=== PATIENT | female | born 1990 ===

== ENCOUNTER → 2018-03-07 | Outpatient (CLI) | payer SELFPAY ==
[~2018-03-07] MED LIST: ANTI NAUSEA MED; NEOPOLHCSU OT; ONDA4 PO
[2018-03-08 15:09] LABS: HPV 16 Negative (Negative); HPV 18 Negative (Negative); HPV OTHER HR TYPES Negative (Negative)
== END ==
LOC: LAB 11:24 → LAB SHORT 11:24
PROVIDERS: Registered Nurse Community Health
DX: Z12.4 Encounter for screening for malignant neoplasm of cervix (principal); Z87.42 Personal history of other diseases of the female genital tract
CPT/HCPCS: 87624; G0123

== ENCOUNTER 2018-07-14 04:53 | Emergency (ER) | payer OTHER ==
[~2018-07-14] VITALS: Ht 129.5 cm; Wt 75.8 kg
[2018-07-14] MEDS ORDERED: IBUP800 PO (08:18)
[2018-07-14] MEDS ORDERED: Ultram50 MG PO (08:18)
== END 2018-07-14 08:43 | disposition home or self-care (01) ==
LOC: ER 04:53
DX: R07.89 Other chest pain (principal)
CPT/HCPCS: 71046; 93005; 93010; 99283-25